=== PATIENT | female | born 1980 | race Two or more races ===

== ENCOUNTER 2017-02-23 06:48 | Inpatient (IN) | payer BC ==
[2017-02-23] MEDS ORDERED: Misoprostol 200 MCG Tab PO PRN (10:12)
[2017-02-23] MEDS ORDERED: Lidocaine 1% 50 ML MDV INJECT PRN (10:12)
[2017-02-23] MEDS ORDERED: Water For Irrigation,Sterile 1,000 ML Container IRR PRN (10:12)
[2017-02-23] MEDS ORDERED: Ondansetron 4 MG/2 ML SDV IV PRN (10:12)
[2017-02-23] MEDS ORDERED: Sodium Chloride 0.9% 10 ML Syringe FLUSH PRN (10:12)
[2017-02-23] MEDS ORDERED: Sodium Chloride 0.9% 2.5 ML Syringe FLUSH PRN (10:12)
[2017-02-23] MEDS ORDERED: Methylergonovine 0.2 MG/1 ML Amp IM PRN (10:12)
[2017-02-23] MEDS ORDERED: Nalbuphine 10 MG/1 ML Vial IVPUSH PRN (10:12)
[2017-02-23] MEDS ORDERED: Carboprost Tromethamine 250 MCG/1 ML Amp IM PRN (10:12)
[2017-02-23] MEDS ORDERED: Butorphanol 1 MG/ML SDV IVPUSH PRN (10:12)
[2017-02-23] MEDS ORDERED: Ampicillin 2 GM in Sodium Chloride 0.9% 100 ML IV ONE (10:12)
[2017-02-23] MEDS ORDERED: Oxytocin/0.9 % Sodium Chloride 30 UNIT/500 ML BAG IV SCH ×2 (10:15→16:30)
[2017-02-23] MEDS ORDERED: Ampicillin 1 GM in Sodium Chloride 0.9% 50 ML IV SCH (10:15)
[2017-02-23] MEDS: Lactated Ringers 1,000 ML IV SCH ×4 (10:45→19:47)
--- NOTE | 2017-02-23 14:39 | PCM.PREANE ---
Preanesthetic Assessment - Anesthesia/Transfusion/Family Hx Anesthesia History: No Prior Anesthesia Transfusion History: No Prior Transfusion(s) - Review of Systems General: No Symptoms Pulmonary: No Symptoms Cardiovascular: No Symptoms Gastrointestinal: No Symptoms Neurological: No Symptoms Other: Reports: None - Physical Assessment Height: 5 ft Weight: 78.925 kg ASA Class: 2 Mental Status: Alert & Oriented x3 Airway Class: Mallampati = 2 Dentition: Reports: Normal Dentition Thyro-Mental Finger Breadths: 3 ROM/Head Extension: Full Lungs: Clear to Auscultation, Normal Respiratory Effort Cardiovascular: Regular Rate, Regular Rhythm - Lab Values: Laboratory Last Values WBC 11.68 K/uL (4.0-11.0) H 02/23/17 10:33 RBC 4.52 M/uL (4.30-5.90) 02/23/17 10:33 Hgb 13.0 g/dL (12.0-16.0) 02/23/17 10:33 Hct 39.2 % (36.0-46.0) 02/23/17 10:33 MCV 86.7 fL (80.0-98.0) 02/23/17 10:33 MCH 28.8 pg (27.0-32.0) 02/23/17 10:33 MCHC 33.2 g/dL (31.0-37.0) 02/23/17 10:33 RDW Std Deviation 50.2 fl (28.0-62.0) 02/23/17 10:33 RDW Coeff of Artie 16 % (11.0-15.0) H 02/23/17 10:33 Plt Count 228 K/uL (150-400) 02/23/17 10:33 MPV 11.00 fL (7.40-12.00) 02/23/17 10:33 Nucleated RBC % 0.0 /100WBC 02/23/17 10:33 Nucleated RBCs # 0 K/uL 02/23/17 10:33 Membrane Rupture NEGATIVE 02/23/17 07:05 Blood Type B POSITIVE 02/23/17 10:33 Antibody Screen NEGATIVE 02/23/17 10:33 - Allergies Allergies/Adverse Reactions: Allergies Allergy/AdvReac Type Severity Reaction Status Date / Time No Known Allergies Allergy Verified 03/24/16 12:43 - Acknowledgements Anesthesia Type Planned: Epidural Pt an Appropriate Candidate for the Planned Anesthesia: Yes Alternatives and Risks of Anesthesia Discussed w Pt/Guardian: Yes Pt/Guardian Understands and Agrees with Anesthesia Plan: Yes PreAnesthesia Questionnaire HEENT History: Reports: None Cardiovascular History: Reports: None Respiratory History: Reports: None Gastrointestinal History: Reports: GERD Genitourinary History: Reports: None [employer] History: Reports: : 3 Para: 1 LMP (Approximate): Musculoskeletal History: Reports: None Neurological History: Reports: None Other Neuro History: hx of motion sickness Psychiatric History: Reports: None Endocrine/Metabolic History: Reports: Obesity/BMI 30+ Hematologic History: Reports: None Immunologic History: Reports: None Oncologic (Cancer) History: Reports: None Dermatologic History: Reports: None - Infectious Disease History Infectious Disease History: Reports: None - Past Surgical History Head Surgeries/Procedures: Reports: None HEENT Surgical History: Reports: None Cardiovascular Surgical History: Reports: None Respiratory Surgical History: Reports: None GI Surgical History: Reports: None Female Surgical History: Reports: None Endocrine Surgical History: Reports: None Neurological Surgical History: Reports: None Musculoskeletal Surgical History: Reports: None Oncologic Surgical History: Reports: None Dermatological Surgical History: Reports: None - SUBSTANCE USE Smoking Status *Q: Never Smoker Second Hand Smoke Exposure: No Recreational Drug Use History: No - HOME MEDS Home Medications: Home Meds Vit #108/Iron/FA [ One Tablet] 1 each PO DAILY 03/22/16 [ History] - CURRENT (IN HOUSE) MEDS Current Meds: Current Medications Butorphanol Tartrate (Stadol) 1 mg IVPUSH Q1H PRN PRN Reason: Pain Carboprost Tromethamine (Hemabate Ds) 250 mcg IM ASDIRECTED PRN PRN Reason: Post Hemorrhage Lactated Ringer's (Ringers, Lactated) 1,000 mls @ 150 mls/hr IV ASDIRECTED [facility] Last Admin: 02/23/17 14:29 Dose: 999 mls/hr Oxytocin/Sodium Chloride (Oxytocin 30 Unit/500 Ml-Ns) 30 unit in 500 mls @ 999 mls/hr IV TITRATE [facility] Ampicillin Sodium 1 gm/ Sodium (Chloride) 50 mls @ 100 mls/hr IV Q4H [facility] Lidocaine HCl (Xylocaine 1%) 50 ml INJECT .ONCE PRN PRN Reason: Laceration repair Methylergonovine Maleate (Methergine) 0.2 mg IM ASDIRECTED PRN PRN Reason: Post Hemorrhage Misoprostol (Cytotec) 200 mcg PO .ONCE PRN PRN Reason: Post Hemorrhage Nalbuphine HCl (Nubain) 10 mg IVPUSH Q1H PRN PRN Reason: Pain (severe 7-10) Ondansetron HCl (Zofran) 4 mg IV Q4H PRN PRN Reason: Nausea/Vomiting Sodium Chloride (Saline Flush) 10 ml FLUSH ASDIRECTED PRN PRN Reason: Keep Vein Open Sodium Chloride (Saline Flush) 2.5 ml FLUSH ASDIRECTED PRN PRN Reason: Keep Vein Open Sterile Water (Sterile Water For Irrigation) 1,000 ml IRR ASDIRECTED PRN PRN Reason: delivery Discontinued Medications Ampicillin Sodium 1 gm/ Sodium (Chloride) 50 mls @ 100 mls/hr IV Q4H [facility] Ampicillin Sodium 2 gm/ Sodium (Chloride) 100 mls @ 200 mls/hr IV ONETIME ONE Stop: 02/23/17 10:41 Last Admin: 02/23/17 11:45 Dose: 200 mls/hr
[2017-02-23] MEDS ORDERED: Ropivacaine 100 ML ONE (14:44)
[2017-02-23] MEDS ORDERED: fentaNYL 100 MCG/2 ML SDV ONE (14:44)
[2017-02-23] MEDS ORDERED: Terbutaline 1 MG/ML SDV SUBCUT PRN (16:19)
[2017-02-23] MEDS: Ampicillin 1 GM in Sodium Chloride 0.9% 50 ML IV SCH ×2 (19:50→20:06)
[2017-02-23] MEDS ORDERED: Bisacodyl 10 MG Supp RECTAL PRN (21:29)
[2017-02-23] MEDS ORDERED: Benzocaine/Menthol 20%-0.5% Spray 78 GM Cannister TOP PRN (21:29)
[2017-02-23] MEDS ORDERED: Lanolin 100% Cream 7 GM Tube TOP PRN (21:29)
[2017-02-23] MEDS: Witch Hazel Medicated Pads 40/Jar TOP PRN (23:29)
[2017-02-23] MEDS: oxyCODONE 5 MG Tab PO PRN (23:40)
[2017-02-23] MEDS: Ibuprofen 400 MG Tab PO PRN (23:41)
[2017-02-24] MEDS: Acetaminophen 500 MG Tab PO PRN ×2 (00:43→09:32)
--- NOTE | 2017-02-24 07:26 | PCM48HPAN ---
Post Anesthesia Note - EVALUATION WITHIN 48HRS OF ANESTHETIC Vital Signs in Normal Range: Yes Patient Participated in Evaluation: Yes Respiratory Function Stable: Yes Airway Patent: Yes Cardiovascular Function Stable: Yes Hydration Status Stable: Yes Pain Control Satisfactory: Yes Nausea and Vomiting Control Satisfactory: Yes Mental Status Recovered: Yes
[2017-02-24] MEDS: Docusate Sodium 100 MG Cap PO PRN ×2 (08:37→21:03)
[2017-02-24] MEDS: Ibuprofen 400 MG Tab PO PRN ×3 (08:38→17:15)
--- NOTE | 2017-02-24 09:13 | PCM.PNPP ---
- General Info Date of Service: 02/24/17 Functional Status: Reports: Pain Controlled, Tolerating Diet, Ambulating, Urinating - Review of Systems General: Denies: Fever, Fatigue HEENT: Denies: Headaches Pulmonary: Denies: Shortness of Breath, Cough Cardiovascular: Denies: Palpitations Gastrointestinal: Reports: Abdominal Pain Genitourinary: Denies: Dysuria, Incontinence Musculoskeletal: Reports: No Symptoms Skin: Reports: No Symptoms Neurological: Reports: No Symptoms Psychiatric: Reports: No Symptoms - General Info Date of Service: 02/24/17 - Patient Data Vital Signs - Most Recent: Last Vital Signs Temp 36.6 C 02/24/17 04:16 Pulse 79 02/24/17 04:16 Resp 16 02/24/17 04:16 BP 118/77 02/24/17 04:16 Pulse Ox 98 02/24/17 04:16 Weight - Most Recent: 174 lb I&O - Last 24 Hours: Intake & Output 02/23/17 02/24/17 02/24/17 22:59 06:59 14:59 Output Total 1100 Balance -1100 Lab Results - Last 24 Hours: Laboratory Results - last 24 hr 02/23/17 02/23/17 02/24/17 Range/Units 10:33 10:33 05:12 WBC 11.68 H (4.0-11.0) K/uL RBC 4.52 (4.30-5.90) M/uL Hgb 13.0 11.9 L (12.0-16.0) g/dL Hct 39.2 36.3 (36.0-46.0) % MCV 86.7 (80.0-98.0) fL MCH 28.8 (27.0-32.0) pg MCHC 33.2 (31.0-37.0) g/dL RDW Std Deviation 50.2 (28.0-62.0) fl RDW Coeff of Artie 16 H (11.0-15.0) % Plt Count 228 (150-400) K/uL MPV 11.00 (7.40-12.00) fL Nucleated RBC % 0.0 /100WBC Nucleated RBCs # 0 K/uL Blood Type B POSITIVE Antibody Screen NEGATIVE Med Orders - Current: Current Medications Acetaminophen (Tylenol Extra Strength) 1,000 mg PO Q4H PRN PRN Reason: Pain Last Admin: 02/24/17 00:43 Dose: 1,000 mg Benzocaine/Menthol (Dermoplast Pain Relief 20%-0.5% [place]) 78 gm TOP ASDIRECTED PRN PRN Reason: Perineal Comfort Measure Last Admin: 02/23/17 23:29 Dose: 78 gm Bisacodyl (Dulcolax) 10 mg RECTAL .ONCE PRN PRN Reason: Constipation Docusate Sodium (Colace) 100 mg PO BID PRN PRN Reason: Constipation Last Admin: 02/24/17 08:37 Dose: 100 mg Emollient Ointment (Lansinoh Hpa) 0 gm TOP ASDIRECTED PRN PRN Reason: Sore Nipples Last Admin: 02/23/17 23:28 Dose: 7 gm Ibuprofen (Motrin) 400 mg PO Q4H PRN PRN Reason: Pain Last Admin: 02/24/17 08:38 Dose: 400 mg Oxycodone HCl (Oxycodone) 5 mg PO Q2H PRN PRN Reason: Pain Last Admin: 02/23/17 23:40 Dose: 5 mg Witch Adele (Tucks) 1 pad TOP ASDIRECTED PRN PRN Reason: comfort care Last Admin: 02/23/17 23:29 Dose: 1 pad Discontinued Medications Butorphanol Tartrate (Stadol) 1 mg IVPUSH Q1H PRN PRN Reason: Pain Carboprost Tromethamine (Hemabate Ds) 250 mcg IM ASDIRECTED PRN PRN Reason: Post Hemorrhage Fentanyl (Sublimaze) Confirm Administered Dose 100 mcg .ROUTE .STK-MED ONE Stop: 02/23/17 14:45 Ampicillin Sodium 1 gm/ Sodium (Chloride) 50 mls @ 100 mls/hr IV Q4H [facility] Last Admin: 02/23/17 15:50 Dose: 100 mls/hr Ampicillin Sodium 2 gm/ Sodium (Chloride) 100 mls @ 200 mls/hr IV ONETIME ONE Stop: 02/23/17 10:41 Last Admin: 02/23/17 11:45 Dose: 200 mls/hr Lactated Ringer's (Ringers, Lactated) 1,000 mls @ 150 mls/hr IV ASDIRECTED [facility] Last Admin: 02/23/17 19:47 Dose: 150 mls/hr Oxytocin/Sodium Chloride (Oxytocin 30 Unit/500 Ml-Ns) 30 unit in 500 mls @ 999 mls/hr IV TITRATE [facility] Ampicillin Sodium 1 gm/ Sodium (Chloride) 50 mls @ 100 mls/hr IV Q4H [facility] Last Admin: 02/23/17 20:06 Dose: Not Given Ropivacaine (Naropin 0.2%) Confirm Administered Dose 100 mls @ as directed .ROUTE .K-MED ONE Stop: 02/23/17 14:45 Oxytocin/Sodium Chloride (Oxytocin 30 Unit/500 Ml-Ns) 30 unit in 500 mls @ 2 mls/hr IV TITRATE [facility]; 2 MUNITS/MIN PRN Reason: Protocol Last Titration: 02/23/17 21:05 Dose: Infused Lidocaine HCl (Xylocaine 1%) 50 ml INJECT .ONCE PRN PRN Reason: Laceration repair Methylergonovine Maleate (Methergine) 0.2 mg IM ASDIRECTED PRN PRN Reason: Post Hemorrhage Misoprostol (Cytotec) 200 mcg PO .ONCE PRN PRN Reason: Post Hemorrhage Nalbuphine HCl (Nubain) 10 mg IVPUSH Q1H PRN PRN Reason: Pain (severe 7-10) Ondansetron HCl (Zofran) 4 mg IV Q4H PRN PRN Reason: Nausea/Vomiting Sodium Chloride (Saline Flush) 10 ml FLUSH ASDIRECTED PRN PRN Reason: Keep Vein Open Sodium Chloride (Saline Flush) 2.5 ml FLUSH ASDIRECTED PRN PRN Reason: Keep Vein Open Sterile Water (Sterile Water For Irrigation) 1,000 ml IRR ASDIRECTED PRN PRN Reason: delivery Last Admin: 02/23/17 21:00 Dose: 1,000 ml Terbutaline Sulfate (Brethine) 0.25 mg SUBCUT ASDIRECTED PRN PRN Reason: Tacysystole - Infant Interaction Disposition, : in Room with Family Feeding: Breastfed ; Nursed Well Support Person: - Recovery Exam Fundal Tone: Firm Fundal Level: 1 Fingerbreadths Below Umbilicus Fundal Placement: Midline Lochia Amount: Scant Lochia Color: Rubra/Red Perineum Description: Edematous Episiotomy/Laceration: Approximated Bladder Status: Nonpalpable, Voiding Urinary Elimination: Voided - Exam General: Alert, Oriented Lungs: Clear to Auscultation Cardiovascular: Regular Rate GI/Abdominal Exam: Non-Tender Extremities: Non-Tender, Pedal Edema Psy/Mental Status: Alert, Normal Affect, Normal Mood - Problem List & Annotations (1) Vaginal delivery SNOMED Code(s): 713850372 Code(s): O80 - ENCOUNTER FOR FULL-TERM UNCOMPLICATED DELIVERY Status: Acute Current Visit: Yes - Problem List Review Problem List Initiated/Reviewed/Updated: Yes - Assessment Assessment:: PPD#1 s/p , stable and afebrile - Plan Plan:: Doing well. Continue routine care Delivered late last night- plan for discharge tomorrow
--- NOTE | 2017-02-24 09:17 | PCM.PNPP ---
- General Info Date of Service: 02/24/17 Admission Dx/Problem (Free Text): 36 yo now P2 s/p stable Subjective Update: Patient seen at bedside denies any complains , she is ambulating , voiding and tolerating regular diet Functional Status: Reports: Pain Controlled, Tolerating Diet, Ambulating, Urinating - Review of Systems General: Reports: No Symptoms HEENT: Reports: No Symptoms Pulmonary: Reports: No Symptoms Cardiovascular: Reports: No Symptoms Gastrointestinal: Reports: No Symptoms Genitourinary: Reports: No Symptoms Musculoskeletal: Reports: No Symptoms Skin: Reports: No Symptoms Neurological: Reports: No Symptoms Psychiatric: Reports: No Symptoms - General Info Date of Service: 02/24/17 - Patient Data Vital Signs - Most Recent: Last Vital Signs Temp 36.6 C 02/24/17 04:16 Pulse 79 02/24/17 04:16 Resp 16 02/24/17 04:16 BP 118/77 02/24/17 04:16 Pulse Ox 98 02/24/17 04:16 Weight - Most Recent: 78.925 kg I&O - Last 24 Hours: Intake & Output 02/23/17 02/24/17 02/24/17 22:59 06:59 14:59 Output Total 1100 Balance -1100 Lab Results - Last 24 Hours: Laboratory Results - last 24 hr 02/23/17 02/23/17 02/24/17 Range/Units 10:33 10:33 05:12 WBC 11.68 H (4.0-11.0) K/uL RBC 4.52 (4.30-5.90) M/uL Hgb 13.0 11.9 L (12.0-16.0) g/dL Hct 39.2 36.3 (36.0-46.0) % MCV 86.7 (80.0-98.0) fL MCH 28.8 (27.0-32.0) pg MCHC 33.2 (31.0-37.0) g/dL RDW Std Deviation 50.2 (28.0-62.0) fl RDW Coeff of Artie 16 H (11.0-15.0) % Plt Count 228 (150-400) K/uL MPV 11.00 (7.40-12.00) fL Nucleated RBC % 0.0 /100WBC Nucleated RBCs # 0 K/uL Blood Type B POSITIVE Antibody Screen NEGATIVE Med Orders - Current: Current Medications Acetaminophen (Tylenol Extra Strength) 1,000 mg PO Q4H PRN PRN Reason: Pain Last Admin: 02/24/17 00:43 Dose: 1,000 mg Benzocaine/Menthol (Dermoplast Pain Relief 20%-0.5% [place]) 78 gm TOP ASDIRECTED PRN PRN Reason: Perineal Comfort Measure Last Admin: 02/23/17 23:29 Dose: 78 gm Bisacodyl (Dulcolax) 10 mg RECTAL .ONCE PRN PRN Reason: Constipation Docusate Sodium (Colace) 100 mg PO BID PRN PRN Reason: Constipation Last Admin: 02/24/17 08:37 Dose: 100 mg Emollient Ointment (Lansinoh Hpa) 0 gm TOP ASDIRECTED PRN PRN Reason: Sore Nipples Last Admin: 02/23/17 23:28 Dose: 7 gm Ibuprofen (Motrin) 400 mg PO Q4H PRN PRN Reason: Pain Last Admin: 02/24/17 08:38 Dose: 400 mg Oxycodone HCl (Oxycodone) 5 mg PO Q2H PRN PRN Reason: Pain Last Admin: 02/23/17 23:40 Dose: 5 mg Witch Adele (Tucks) 1 pad TOP ASDIRECTED PRN PRN Reason: comfort care Last Admin: 02/23/17 23:29 Dose: 1 pad Discontinued Medications Butorphanol Tartrate (Stadol) 1 mg IVPUSH Q1H PRN PRN Reason: Pain Carboprost Tromethamine (Hemabate Ds) 250 mcg IM ASDIRECTED PRN PRN Reason: Post Hemorrhage Fentanyl (Sublimaze) Confirm Administered Dose 100 mcg .ROUTE .STK-MED ONE Stop: 02/23/17 14:45 Ampicillin Sodium 1 gm/ Sodium (Chloride) 50 mls @ 100 mls/hr IV Q4H [facility] Last Admin: 02/23/17 15:50 Dose: 100 mls/hr Ampicillin Sodium 2 gm/ Sodium (Chloride) 100 mls @ 200 mls/hr IV ONETIME ONE Stop: 02/23/17 10:41 Last Admin: 02/23/17 11:45 Dose: 200 mls/hr Lactated Ringer's (Ringers, Lactated) 1,000 mls @ 150 mls/hr IV ASDIRECTED [facility] Last Admin: 02/23/17 19:47 Dose: 150 mls/hr Oxytocin/Sodium Chloride (Oxytocin 30 Unit/500 Ml-Ns) 30 unit in 500 mls @ 999 mls/hr IV TITRATE [facility] Ampicillin Sodium 1 gm/ Sodium (Chloride) 50 mls @ 100 mls/hr IV Q4H [facility] Last Admin: 02/23/17 20:06 Dose: Not Given Ropivacaine (Naropin 0.2%) Confirm Administered Dose 100 mls @ as directed .ROUTE .[facility]-MED ONE Stop: 02/23/17 14:45 Oxytocin/Sodium Chloride (Oxytocin 30 Unit/500 Ml-Ns) 30 unit in 500 mls @ 2 mls/hr IV TITRATE [facility]; 2 MUNITS/MIN PRN Reason: Protocol Last Titration: 02/23/17 21:05 Dose: Infused Lidocaine HCl (Xylocaine 1%) 50 ml INJECT .ONCE PRN PRN Reason: Laceration repair Methylergonovine Maleate (Methergine) 0.2 mg IM ASDIRECTED PRN PRN Reason: Post Hemorrhage Misoprostol (Cytotec) 200 mcg PO .ONCE PRN PRN Reason: Post Hemorrhage Nalbuphine HCl (Nubain) 10 mg IVPUSH Q1H PRN PRN Reason: Pain (severe 7-10) Ondansetron HCl (Zofran) 4 mg IV Q4H PRN PRN Reason: Nausea/Vomiting Sodium Chloride (Saline Flush) 10 ml FLUSH ASDIRECTED PRN PRN Reason: Keep Vein Open Sodium Chloride (Saline Flush) 2.5 ml FLUSH ASDIRECTED PRN PRN Reason: Keep Vein Open Sterile Water (Sterile Water For Irrigation) 1,000 ml IRR ASDIRECTED PRN PRN Reason: delivery Last Admin: 02/23/17 21:00 Dose: 1,000 ml Terbutaline Sulfate (Brethine) 0.25 mg SUBCUT ASDIRECTED PRN PRN Reason: Tacysystole - Interaction Disposition, : at Bedside Support Person: - Recovery Exam Fundal Tone: Firm Fundal Level: 1 Fingerbreadths Below Umbilicus Fundal Placement: Midline Lochia Amount: Scant Lochia Color: Rubra/Red Perineum Description: Edematous Episiotomy/Laceration: Approximated Bladder Status: Nonpalpable, Voiding Urinary Elimination: Voided - Exam General: Alert HEENT: Pupils Equal Lungs: Clear to Auscultation Cardiovascular: Regular Rate, Regular Rhythm GI/Abdominal Exam: Normal Bowel Sounds Extremities: Normal Inspection, Pedal Edema (1 +) Psy/Mental Status: Alert - Problem List Review Problem List Initiated/Reviewed/Updated: Yes - Assessment Assessment:: 36yo P2 s/p .normal lochia stable - Plan Plan:: Pain control vitamins Iron
[2017-02-24] MEDS: oxyCODONE 5 MG Tab PO PRN (22:29)
[2017-02-25] MEDS: Ibuprofen 400 MG Tab PO PRN (03:57)
[2017-02-25] MEDS: Witch Hazel Medicated Pads 40/Jar TOP PRN (04:13)
[2017-02-25 06:08] VITALS: BP 116/56
--- NOTE | 2017-02-25 07:40 | PCM.PNPP ---
- General Info Date of Service: 02/25/17 Admission Dx/Problem (Free Text): 36 yo now P2 s/p stable PPD 2 Subjective Update: Patient seen at bedside denies any complains , she is ambulating , voiding and tolerating regular diet Functional Status: Reports: Pain Controlled, Tolerating Diet, Ambulating, Urinating - Review of Systems General: Reports: No Symptoms HEENT: Reports: No Symptoms Pulmonary: Reports: No Symptoms Cardiovascular: Reports: No Symptoms Gastrointestinal: Reports: No Symptoms Genitourinary: Reports: No Symptoms Musculoskeletal: Reports: No Symptoms Skin: Reports: No Symptoms Neurological: Reports: No Symptoms Psychiatric: Reports: No Symptoms - General Info Date of Service: 02/25/17 - Patient Data Vital Signs - Most Recent: Last Vital Signs Temp 36.9 C 02/25/17 04:00 Pulse 82 02/25/17 04:00 Resp 18 02/25/17 04:00 BP 116/56 L 02/25/17 04:00 Pulse Ox 98 02/25/17 04:00 Weight - Most Recent: 78.925 kg Med Orders - Current: Current Medications Acetaminophen (Tylenol Extra Strength) 1,000 mg PO Q4H PRN PRN Reason: Pain Last Admin: 02/24/17 09:32 Dose: 1,000 mg Benzocaine/Menthol (Dermoplast Pain Relief 20%-0.5% [place]) 78 gm TOP ASDIRECTED PRN PRN Reason: Perineal Comfort Measure Last Admin: 02/23/17 23:29 Dose: 78 gm Bisacodyl (Dulcolax) 10 mg RECTAL .ONCE PRN PRN Reason: Constipation Docusate Sodium (Colace) 100 mg PO BID PRN PRN Reason: Constipation Last Admin: 02/24/17 21:03 Dose: 100 mg Emollient Ointment (Lansinoh Hpa) 0 gm TOP ASDIRECTED PRN PRN Reason: Sore Nipples Last Admin: 02/23/17 23:28 Dose: 7 gm Ibuprofen (Motrin) 400 mg PO Q4H PRN PRN Reason: Pain Last Admin: 02/25/17 03:57 Dose: 400 mg Oxycodone HCl (Oxycodone) 5 mg PO Q2H PRN PRN Reason: Pain Last Admin: 02/24/17 22:29 Dose: 5 mg Witch Adele (Tucks) 1 pad TOP ASDIRECTED PRN PRN Reason: comfort care Last Admin: 02/25/17 04:13 Dose: 1 pad Discontinued Medications Butorphanol Tartrate (Stadol) 1 mg IVPUSH Q1H PRN PRN Reason: Pain Carboprost Tromethamine (Hemabate Ds) 250 mcg IM ASDIRECTED PRN PRN Reason: Post Hemorrhage Fentanyl (Sublimaze) Confirm Administered Dose 100 mcg .ROUTE .STK-MED ONE Stop: 02/23/17 14:45 Ampicillin Sodium 1 gm/ Sodium (Chloride) 50 mls @ 100 mls/hr IV Q4H [facility] Last Admin: 02/23/17 15:50 Dose: 100 mls/hr Ampicillin Sodium 2 gm/ Sodium (Chloride) 100 mls @ 200 mls/hr IV ONETIME ONE Stop: 02/23/17 10:41 Last Admin: 02/23/17 11:45 Dose: 200 mls/hr Lactated Ringer's (Ringers, Lactated) 1,000 mls @ 150 mls/hr IV ASDIRECTED [facility] Last Admin: 02/23/17 19:47 Dose: 150 mls/hr Oxytocin/Sodium Chloride (Oxytocin 30 Unit/500 Ml-Ns) 30 unit in 500 mls @ 999 mls/hr IV TITRATE [facility] Ampicillin Sodium 1 gm/ Sodium (Chloride) 50 mls @ 100 mls/hr IV Q4H [facility] Last Admin: 02/23/17 20:06 Dose: Not Given Ropivacaine (Naropin 0.2%) Confirm Administered Dose 100 mls @ as directed .ROUTE .STK-MED ONE Stop: 02/23/17 14:45 Oxytocin/Sodium Chloride (Oxytocin 30 Unit/500 Ml-Ns) 30 unit in 500 mls @ 2 mls/hr IV TITRATE [facility]; 2 MUNITS/MIN PRN Reason: Protocol Last Titration: 02/23/17 21:05 Dose: Infused Lidocaine HCl (Xylocaine 1%) 50 ml INJECT .ONCE PRN PRN Reason: Laceration repair Methylergonovine Maleate (Methergine) 0.2 mg IM ASDIRECTED PRN PRN Reason: Post Hemorrhage Misoprostol (Cytotec) 200 mcg PO .ONCE PRN PRN Reason: Post Hemorrhage Nalbuphine HCl (Nubain) 10 mg IVPUSH Q1H PRN PRN Reason: Pain (severe 7-10) Ondansetron HCl (Zofran) 4 mg IV Q4H PRN PRN Reason: Nausea/Vomiting Sodium Chloride (Saline Flush) 10 ml FLUSH ASDIRECTED PRN PRN Reason: Keep Vein Open Sodium Chloride (Saline Flush) 2.5 ml FLUSH ASDIRECTED PRN PRN Reason: Keep Vein Open Sterile Water (Sterile Water For Irrigation) 1,000 ml IRR ASDIRECTED PRN PRN Reason: delivery Last Admin: 02/23/17 21:00 Dose: 1,000 ml Terbutaline Sulfate (Brethine) 0.25 mg SUBCUT ASDIRECTED PRN PRN Reason: Tacysystole - Infant Interaction Disposition, : [place] in Room with Family Feeding: Breastfed Infant; Nursed Well Support Person: - Recovery Exam Fundal Tone: Firm Fundal Level: 1 Fingerbreadths Below Umbilicus Fundal Placement: Midline Lochia Amount: Scant Lochia Color: Rubra/Red Perineum Description: Edematous, Other (see below) Other Perinuem Description: 2nd degree laceration Episiotomy/Laceration: Approximated Bladder Status: Nonpalpable, Voiding Urinary Elimination: Voided - Exam General: Alert, Oriented HEENT: Pupils Equal Neck: Supple Lungs: Clear to Auscultation Cardiovascular: Regular Rate, Regular Rhythm GI/Abdominal Exam: Normal Bowel Sounds Extremities: Normal Inspection Skin: Warm - Problem List Review Problem List Initiated/Reviewed/Updated: Yes - Assessment Assessment:: PPD#2 s/p , stable and afebrile - Plan Plan:: Stable Discharge home today
--- NOTE | 2017-02-25 09:43 | OR ---
SURGEON: Alicia Horne M.D. DATE OF PROCEDURE: 02/23/2017 DELIVERY NOTE PREOPERATIVE DIAGNOSES: 1. 39 4/7 weeks' intrauterine . 2. Active spontaneous labor. POSTOPERATIVE DIAGNOSES: 1. 39 4/7 weeks' intrauterine . 2. Active spontaneous labor. PROCEDURES PERFORMED: Term spontaneous vaginal delivery with repair of second-degree laceration. PRIMARY SURGEON: Alicia Horne MD. ANESTHESIA: Epidural. ESTIMATED BLOOD LOSS: Less than 300 mL. FINDINGS: Liveborn male with scores of 8 and 9 and weighing 3480 g. Placenta was spontaneous, Schultze intact with three vessels. Second-degree perineal laceration repaired. COMPLICATIONS: None known. DISPOSITION: Mother and baby were in LDRP, in good condition. BRIEF HISTORY: This is a 36-year-old female, G3, P1-0-1-1. She presents at 39 4/7 weeks' gestation in active spontaneous labor. She is group B strep positive. She received two doses of ampicillin. She had category 1 heart tones. She received an epidural for pain control. She had artificial rupture of membranes. Clear fluid was noted. She continued to labor with slow, but continuous progress until she was complete. DESCRIPTION OF PROCEDURE: With the patient in dorsolithotomy position, the patient pushed over a 20-minute time period to a 5+ station, at which time, the head was delivered spontaneously and atraumatically over the perineum with support. After the head had restituted, I did utilize Goyo maneuver, as well as placing her in the low supine position and allowed the shoulder to rotate, which occurred without difficulty, with subsequent delivery of the 's shoulders and body. The was bulb suctioned by nose and mouth. The cord was clamped x2 and cut, and the was handed to the mother in the presence of nurse attending delivery. The is a liveborn male, scores of 8 and 9, weighing 3480 g. Cord blood was collected for cord ABGs, as well as routine cord blood sampling. Pitocin was initiated after delivery of the infant to assist with delivery of the placenta, which was delivered spontaneously, Schultze intact with three vessels. Upon inspection of the pelvis and perineum, there were no periurethral, vaginal sidewall, cervical, or rectal lacerations. There was a second-degree perineal laceration, which was repaired using three [id number] sutures for the deep perineal tissue of 2-0 Caprosyn, followed by 2-0 Caprosyn in a running, locked fashion for the vaginal mucosa, and bringing the needle down to the perineum utilizing a running suture for the more superficial perineal tissue and a running subcuticular suture for the skin. COUNT RESULTS: Final sponge, needle, and instrument counts were correct. CONDITION: There were no known complications. Mother and remained in LDRP in good condition. COLLETTE / EDIN /[id number]
== END 2017-02-25 08:15 | disposition home or self-care (01) | DRG 560 ==
LOC: MW.OBCHECK 06:48 → MW.OB 06:49 → MW.OBCHECK 06:50 → OBSVTOIN 21:02 → MW.OB 22:00
PROVIDERS: ADMIT Pediatrics; ATTEND Obstetrics & Gynecology
PROC: 10E0XZZ Delivery of Products of Conception, External Approach (ICD-10-PCS; principal; 2017-02-23)
PROC: 10907ZC Drainage of Amniotic Fluid, Therapeutic from Products of Conception, Via Natural or Artificial Opening (ICD-10-PCS; 2017-02-23)
PROC: 0KQM0ZZ Repair Perineum Muscle, Open Approach (ICD-10-PCS; 2017-02-23)
DX: O70.1 Second degree perineal laceration during delivery (principal); O99.824 Streptococcus B carrier state complicating childbirth; Z3A.39 39 weeks gestation of pregnancy; Z37.0 Single live birth
CPT/HCPCS: 01967; 36415; 51702; 59025; 59409; 84112; 85014; 85018; 85027; 86850; 86900; 86901; A9270-GY; J0290; J2590; J2795; J3010; J7030; J7050; J7120